=== PATIENT | female | born 1975 | race Caucasian/White ===

== ENCOUNTER 2018-03-29 08:56 | Emergency (ER) | payer OTHER ==
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
[2018-03-29] MEDS ORDERED: Ketorolac 30 MG/ML SDV IM ONE (10:05)
[2018-03-29 10:11] VITALS: BP 128/86
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
== END 2018-03-29 10:29 | disposition home or self-care (01) ==
LOC: DL.ED 08:56
DX: S39.012A Strain of muscle, fascia and tendon of lower back, initial encounter (principal); S46.912A Strain of unspecified muscle, fascia and tendon at shoulder and upper arm level, left arm, initial encounter; Z91.030 Bee allergy status; Z79.899 Other long term (current) drug therapy; E66.9 Obesity, unspecified; V89.2XXA Person injured in unspecified motor-vehicle accident, traffic, initial encounter
CPT/HCPCS: 72100; 73030; 96372; 99284; J1885

== ENCOUNTER 2018-08-10 06:02 | Emergency (ER) | payer OTHER ==
[2018-08-10 06:14] VITALS: BP 110/59
[2018-08-10] MEDS ORDERED: Sodium Chloride 0.9% 10 ML Syringe FLUSH PRN (06:16)
[2018-08-10] MEDS ORDERED: Sodium Chloride 0.9% 1,000 ML IV ONE (06:16)
[2018-08-10] MEDS ORDERED: HYDROmorphone 1 MG/ML Syringe IVPUSH ONE (06:21)
[2018-08-10 06:42] LABS: ANION GAP 14.7; CHLORIDE,CL 103 mmol/L (101-111); SODIUM,NA 138 mmol/L (135-145)
[2018-08-10] MEDS ORDERED: Lactated Ringers 1,000 ML IV ONE (06:53)
--- NOTE | 2018-08-10 08:53 | EDM.PDOC ---
ED HPI GENERAL MEDICAL PROBLEM - General Chief Complaint: Abdominal Pain Stated Complaint: SEVERE PAIN FRONT OF STOMACH [id number] Time Seen by Provider: 08/10/18 06:40 Source of Information: Reports: Patient History Limitations: Reports: No Limitations - History of Present Illness INITIAL COMMENTS - FREE TEXT/NARRATIVE: patient comes emergency room today with complaints of epigastric pain. Since last night she has had a waxing and waning sharp shooting stabbing epigastric pain that feels like a band around her epigastric region that radiates into her back. She has some underlying constant pain as well. Every time that she eats she gets nauseous and feels like she needs to vomit. She's had no fever no chills. No diarrhea. No weakness dizziness lightheadedness. Normal amount of all movements. No hematuria dysuria or urinary frequency. No flank pain. She had a similar episode of this about 1 week ago. She had a gastric bypass in December. She recently discontinued her omeprazole but appropriately slowly weaned off. Not been struggling with any heartburn. Upper Abdominal Pain Score (Numeric/FACES): 10 - Related Data Allergies Allergy/AdvReac Type Severity Reaction Status Date / Time bee venom protein (honey bee) Allergy Cannot Verified 08/10/18 06:15 Remember bupropion [From Wellbutrin] Allergy Anaphylactic Verified 08/10/18 06:15 Shock ibuprofen [From Motrin] Allergy Anaphylactic Verified 08/10/18 06:15 Shock oseltamivir phosphate Allergy Anaphylactic Verified 08/10/18 06:15 [From Tamiflu] Shock tetracycline Allergy Anaphylactic Verified 08/10/18 06:15 Shock tiotropium bromide Allergy Swollen Verified 08/10/18 06:15 [From Spiriva with Tongue HandiHaler] Home Meds: Home Meds Cetirizine HCl [Zyrtec] 10 mg PO DAILY 06/09/15 [History] Cholecalciferol (Vitamin D3) [Vitamin D] 2,000 unit PO DAILY 06/09/15 [History] Ethinyl Estradiol/Drospirenone [Ocella 3 MG-0.03 MG] 1 tab PO ASDIRECTED [History] Multivitamin [Multi-Day Vitamins] 1 each PO DAILY 03/29/18 [History] Potassium 99 mg PO DAILY 08/10/18 [History] Past Medical History HEENT History: Reports: None Cardiovascular History: Reports: None Respiratory History: Reports: Asthma Gastrointestinal History: Reports: None Genitourinary History: Reports: None 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 shoulder. Neurological History: Reports: None, Migraines Psychiatric History: Reports: None Endocrine/Metabolic History: Reports: Obesity/BMI 30+ Hematologic History: Reports: None Immunologic History: Reports: None Oncologic (Cancer) History: Reports: None Dermatologic History: Reports: None - Past Surgical History HEENT Surgical History: Reports: Tonsillectomy Cardiovascular Surgical History: Reports: None GI Surgical History: Reports: Other (See Below) Other GI Surgeries/Procedures: gastric surgery january of 2018 Female Surgical History: Reports: None Neurological Surgical History: Reports: None Musculoskeletal Surgical History: Reports: None Social & Family History - Family History Family Medical History: Noncontributory - Tobacco Use Smoking Status *Q: Never Smoker Second Hand Smoke Exposure: No - Caffeine Use Caffeine Use: Reports: None - Recreational Drug Use Recreational Drug Use: No - Living Situation & Occupation Living situation: Reports: with Family Occupation: Employed ED ROS GENERAL - Review of Systems Review Of Systems: ROS reveals no pertinent complaints other than HPI. ED EXAM, GI/ABD - Physical Exam Exam: See Below Exam Limited By: No Limitations General Appearance: Alert, WD/WN, No Apparent Distress Throat/Mouth: Normal Inspection, Normal Lips. No: Normal Oropharynx (oral mucosa is dry) Head: Atraumatic, Normocephalic Neck: Normal Inspection, Supple Respiratory/Chest: No Respiratory Distress, Lungs Clear, Normal Breath Sounds, No Accessory Muscle Use Cardiovascular: Normal Peripheral Pulses, Regular Rate, Rhythm GI/Abdominal Exam: Normal Bowel Sounds, Soft, Tender (tenderness to the epigastric region with guarding no rebound. Normal bowel sounds. Rest of the abdomen is soft nontender) Back Exam: Normal Inspection, Full Range of Motion. No: CVA Tenderness (L), CVA Tenderness (R) Extremities: Normal Inspection, Normal Range of Motion, Normal Capillary Refill Neurological: Alert, Oriented, CN II-XII Intact, No Motor/Sensory Deficits Psychiatric: Normal Affect, Normal Mood Skin Exam: Warm, Dry, Intact Course - Vital Signs Last Recorded V/S: Last Vital Signs Temp 36.5 C 08/10/18 06:08 Pulse 64 08/10/18 06:08 Resp 16 08/10/18 06:08 BP 110/59 L 08/10/18 06:08 Pulse Ox 100 08/10/18 06:08 - Orders/Labs/Meds Orders: Active Orders 24 hr Category Date Time Status Peripheral IV Care [RC] . DIRECTED Care 08/10/18 06:16 Active Gallbladder [Abdomen Ltd] [US] Urgent Exams 08/10/18 06:53 Taken Sodium Chloride 0.9% [Saline Flush] Med 08/10/18 06:16 Active 10 ml FLUSH ASDIRECTED PRN Peripheral IV Insertion Adult [OM.PC] Stat Oth 08/10/18 06:14 Ordered Medication Orders Sodium Chloride (Saline Flush) 10 ml FLUSH ASDIRECTED PRN PRN Reason: Keep Vein Open Last Admin: 08/10/18 06:21 Dose: 10 ml Labs: Laboratory Tests 08/10/18 08/10/18 08/10/18 Range/Units 06:13 06:13 06:13 WBC 9.8 (5.0-10.0) 10^3/uL RBC 4.43 (4.2-5.4) 10^6/uL Hgb 13.0 (12.0-16.0) g/dL Hct 39.8 (37.0-47.0) % MCV 89.8 (80-100) fL MCH 29.3 (27.0-34.0) pg MCHC 32.7 L (33.0-35.0) g/dL Plt Count 247 (150-450) 10^3/uL Neut % (Auto) 71.2 (42.2-75.2) % Lymph % (Auto) 17.7 L (20.5-50.1) % [place] % (Auto) 8.3 H (2-8) % Eos % (Auto) 2.3 (1.0-3.0) % Baso % (Auto) 0.5 (0.0-1.0) % Sodium 138 (135-145) mmol/L Potassium 3.7 (3.6-5.0) mmol/L Chloride 103 (101-111) mmol/L Carbon Dioxide 24.0 (21.0-31.0) mmol/L Anion Gap 14.7 BUN 9 (7-18) mg/dL Creatinine 0.6 (0.6-1.3) mg/dL Est Cr Clr Drug Dosing TNP Estimated GFR (MDRD) > 60 BUN/Creatinine Ratio 15.00 Glucose 87 (74-105) mg/dL Calcium 8.7 (8.4-10.2) mg/dl Total Bilirubin 0.4 (0.2-1.0) mg/dL AST 20 (10-42) IU/L ALT 20 (10-60) IU/L Alkaline Phosphatase 42 (42-121) IU/L C-Reactive Protein 1.0 (0.0-1.3) mg/dL Total Protein 6.7 (6.7-8.2) g/dl Albumin 3.8 (3.2-5.5) g/dl Globulin 2.9 Albumin/Globulin Ratio 1.31 Amylase 43 (28-100) U/L Lipase 26 (22-51) U/L Urine Color (YELLOW) Urine Appearance (CLEAR) Urine pH (5.0-9.0) Ur Specific [place] (1.005-1.030) Urine Protein (NEGATIVE) Urine Glucose (UA) (NEGATIVE) Urine Ketones (NEGATIVE) Urine Occult Blood (NEGATIVE) Urine Nitrite (NEGATIVE) Urine Bilirubin (NEGATIVE) Urine Urobilinogen (0.2-1.0) mg/dL Ur Leukocyte Esterase (NEGATIVE) Urine HCG, Qual 08/10/18 08/10/18 Range/Units 08:45 08:45 WBC (5.0-10.0) 10^3/uL RBC (4.2-5.4) 10^6/uL Hgb (12.0-16.0) g/dL Hct (37.0-47.0) % MCV (80-100) fL MCH (27.0-34.0) pg MCHC (33.0-35.0) g/dL Plt Count (150-450) 10^3/uL Neut % (Auto) (42.2-75.2) % Lymph % (Auto) (20.5-50.1) % [place] % (Auto) (2-8) % Eos % (Auto) (1.0-3.0) % Baso % (Auto) (0.0-1.0) % Sodium (135-145) mmol/L Potassium (3.6-5.0) mmol/L Chloride (101-111) mmol/L Carbon Dioxide (21.0-31.0) mmol/L Anion Gap BUN (7-18) mg/dL Creatinine (0.6-1.3) mg/dL Est Cr Clr Drug Dosing Estimated GFR (MDRD) BUN/Creatinine Ratio Glucose (74-105) mg/dL Calcium (8.4-10.2) mg/dl Total Bilirubin (0.2-1.0) mg/dL AST (10-42) IU/L ALT (10-60) IU/L Alkaline Phosphatase (42-121) IU/L C-Reactive Protein (0.0-1.3) mg/dL Total Protein (6.7-8.2) g/dl Albumin (3.2-5.5) g/dl Globulin Albumin/Globulin Ratio Amylase (28-100) U/L Lipase (22-51) U/L Urine Color Dark yellow (YELLOW) Urine Appearance Clear (CLEAR) Urine pH 6.0 (5.0-9.0) Ur Specific [place] 1.020 (1.005-1.030) Urine Protein Negative (NEGATIVE) Urine Glucose (UA) Negative (NEGATIVE) Urine Ketones Negative (NEGATIVE) Urine Occult Blood Negative (NEGATIVE) Urine Nitrite Negative (NEGATIVE) Urine Bilirubin Negative (NEGATIVE) Urine Urobilinogen 0.2 (0.2-1.0) mg/dL Ur Leukocyte Esterase Negative (NEGATIVE) Urine HCG, Qual Negative Meds: Medications Generic Name Dose Route Start Last Admin Trade Name Freq PRN Reason Stop Dose Admin Sodium Chloride 10 ml 08/10/18 06:16 08/10/18 06:21 Saline Flush FLUSH 10 ml ASDIRECTED PRN Administration Keep Vein Open Discontinued Medications Generic Name Dose Route Start Last Admin Trade Name Freq PRN Reason Stop Dose Admin Hydromorphone HCl 1 mg 08/10/18 06:21 08/10/18 06:24 Dilaudid IVPUSH 08/10/18 06:22 1 mg ONETIME ONE Administration Sodium Chloride 1,000 mls @ 999 mls/hr 08/10/18 06:16 08/10/18 06:19 Normal Saline IV 08/10/18 07:16 999 mls/hr .BOLUS ONE Administration Lactated Ringer's 1,000 mls @ 1,000 mls/hr 08/10/18 06:53 Ringers, Lactated IV 08/10/18 07:52 .BOLUS ONE - Re-Assessments/Exams Free Text/Narrative Re-Assessment/Exam: 08/10/18 08:51 patient initially was given a liter of normal saline and Dilaudid by my partner. Laboratory evaluation is rather unremarkable to include a normal CBC and CMP. Her pain was much improved following the Dilaudid. Departure - Departure Time of Disposition: 09:32 Disposition: Home, Self-Care 01 Clinical Impression: Epigastric abdominal pain - Discharge Information Instructions: Opioid Pain Medicine Information, [id number], Pain Medicine Instructions, [id number], Abdominal Pain, Adult, [id number] Forms: ED Department Discharge Additional Instructions: If pain return try OTC Maalox or Mylanta for acute pain, if does improve the pain may be GERD related. If the acute pain does resolve with the maalox or Mylanta talk with Dr. Serna about starting Omeprazole again. Low fat diet. Slowly advance diet as tolerated no dairy products until symptoms have resolved for 24 hrs. Tylenol as needed for pain. If pain not controlled with above. Hamel, 1 tablet every 6 hrs with food as needed for pain. RX given to the patient #9. Return to the ED if new or worsening symptoms Follow up with Dr. Serna or Dr Reynold Iyer by phone in the next few days for recheck and possible visit with concerns of the gallbladder polyps. - My Orders Last 24 Hours: My Active Orders 08/10/18 06:53 Gallbladder [Abdomen Ltd] [US] Urgent - Assessment/Plan Last 24 Hours: My Active Orders 08/10/18 06:53 Gallbladder [Abdomen Ltd] [US] Urgent Assessment:: Epigastric pain, GERD vs gallbladder polyp concern. No cholelithiasis or cystitis. Plan: If pain return try OTC Maalox or Mylanta for acute pain, if does improve the pain may be GERD related. If the acute pain does resolve with the maalox or Mylanta talk with Dr. Serna about starting Omeprazole again. Low fat diet. Slowly advance diet as tolerated no dairy products until symptoms have resolved for 24 hrs. Tylenol as needed for pain. If pain not controlled with above. Hamel, 1 tablet every 6 hrs with food as needed for pain. RX given to the patient #9. Return to the ED if new or worsening symptoms Follow up with Dr. Serna or Dr Reynold Iyer by phone in the next few days for recheck and possible visit with concerns of the gallbladder polyps. Please CC a copy of this note and ultrasound to Dr. Serna or Dr. Kanwal Iyer at [facility] in [place].
== END 2018-08-10 09:48 | disposition home or self-care (01) ==
LOC: DL.ED 06:02
DX: R10.13 Epigastric pain (principal); Z79.899 Other long term (current) drug therapy; Z88.8 Allergy status to other drugs, medicaments and biological substances; Z91.030 Bee allergy status; Z88.6 Allergy status to analgesic agent
CPT/HCPCS: 36415; 76705; 80053; 81003; 81025; 82150; 83690; 85025; 86140; 96361; 96374; 99284; J1170; J7030

== ENCOUNTER 2021-08-22 06:14 | Emergency (ER) | payer MEDICAID, OTHER ==
[2021-08-22 06:30] VITALS: BP 164/84; PULSE 65
[2021-08-22] MEDS ORDERED: Sodium Chloride 0.9% 1,000 ML IV ONE (07:20)
[2021-08-22] MEDS ORDERED: Ondansetron 4 MG/2 ML SDV IVPUSH ONE (07:26)
[2021-08-22] MEDS ORDERED: fentaNYL 100 MCG/2 ML SDV IVPUSH ONE (07:26)
[2021-08-22 07:35] LABS: ANION GAP 12.1 mEq/L (7-13)
[2021-08-22] MEDS ORDERED: Tamsulosin 0.4 MG Cap.ER PO ONE (08:06)
[2021-08-22] MEDS ORDERED: Acetaminophen/oxyCODONE 325-5 MG Tab PO ONE (09:24)
== END 2021-08-22 10:12 | disposition home or self-care (01) ==
LOC: DL.ED 06:14
DX: N13.2 Hydronephrosis with renal and ureteral calculous obstruction (principal); F17.210 Nicotine dependence, cigarettes, uncomplicated; E66.9 Obesity, unspecified; Z68.35 Body mass index [BMI] 35.0-35.9, adult; Z91.030 Bee allergy status; Z88.8 Allergy status to other drugs, medicaments and biological substances; Z79.899 Other long term (current) drug therapy
CPT/HCPCS: 36415; 74176; 80053; 81001; 83605; 84703; 85025; 96361; 96374; 96375; 99284; A9270; J2405; J3010; J7030

== ENCOUNTER 2021-09-11 00:38 | Emergency (ER) | payer MEDICAID ==
[2021-09-11 02:11] VITALS: BP 148/100; PULSE 62
[2021-09-11] MEDS ORDERED: Ondansetron 4 MG/2 ML SDV IVPUSH ONE (02:15)
[2021-09-11] MEDS ORDERED: Sodium Chloride 0.9% 1,000 ML IV ONE (02:15)
[2021-09-11] MEDS ORDERED: HYDROmorphone 1 MG/ML Syringe IVPUSH ONE (02:15)
[2021-09-11] MEDS ORDERED: Tamsulosin 0.4 MG Cap.ER PO ONE (02:49)
[2021-09-11 02:58] LABS: AMPHETAMINES,URINE NEGATIVE (NEGATIVE); BARBITURATES,URINE NEGATIVE (NEGATIVE); BENZODIAZEPINE,URINE NEGATIVE (NEGATIVE); MDMA (ECSTASY), URINE NEGATIVE (NEGATIVE); METHADONE,URINE NEGATIVE (NEGATIVE); METHAMPHETAMINES,URINE NEGATIVE (NEGATIVE); OPIATES,URINE NEGATIVE (NEGATIVE); OXYCODONE,URINE NEGATIVE (NEGATIVE); PHENCYCLIDINE,URINE NEGATIVE (NEGATIVE); TCA,URINE NEGATIVE (NEGATIVE)
[2021-09-11 03:00] LABS: ANION GAP 13.3 mEq/L (7-13)
== END 2021-09-11 03:41 | disposition home or self-care (01) ==
LOC: DL.ED 00:38
DX: N23 Unspecified renal colic (principal); E66.9 Obesity, unspecified; Z68.35 Body mass index [BMI] 35.0-35.9, adult; Z91.030 Bee allergy status; Z88.6 Allergy status to analgesic agent; Z88.1 Allergy status to other antibiotic agents; Z88.8 Allergy status to other drugs, medicaments and biological substances; Z79.899 Other long term (current) drug therapy
CPT/HCPCS: 36415; 80053; 80305; 81001; 85025; 96361; 96374; 96375; 99283; 99284; A9270; J1170; J2405; J7030

== ENCOUNTER 2021-09-11 21:33 | Emergency (ER) | payer MEDICAID ==
[2021-09-11 22:05] VITALS: BP 179/96; PULSE 79
[2021-09-12] MEDS ORDERED: Sodium Chloride 0.9% 1,000 ML IV ONE (00:37)
[2021-09-12 01:10] LABS: AMPHETAMINES,URINE NEGATIVE (NEGATIVE); BARBITURATES,URINE NEGATIVE (NEGATIVE); BENZODIAZEPINE,URINE NEGATIVE (NEGATIVE); MDMA (ECSTASY), URINE NEGATIVE (NEGATIVE); METHADONE,URINE NEGATIVE (NEGATIVE); METHAMPHETAMINES,URINE NEGATIVE (NEGATIVE); OPIATES,URINE POSITIVE (NEGATIVE); OXYCODONE,URINE NEGATIVE (NEGATIVE); PHENCYCLIDINE,URINE NEGATIVE (NEGATIVE); TCA,URINE NEGATIVE (NEGATIVE)
[2021-09-12] MEDS ORDERED: Ondansetron 4 MG/2 ML SDV IVPUSH ONE (01:13)
[2021-09-12] MEDS ORDERED: HYDROmorphone 1 MG/ML Syringe IVPUSH ONE ×3 (01:13→08:39)
[2021-09-12 01:47] LABS: ANION GAP 13.1 mEq/L (7-13)
[2021-09-12] MEDS ORDERED: Tamsulosin 0.4 MG Cap.ER PO ONE (01:56)
== END 2021-09-12 09:20 ==
LOC: DL.ED 21:33
DX: N13.2 Hydronephrosis with renal and ureteral calculous obstruction (principal); E66.9 Obesity, unspecified; F17.210 Nicotine dependence, cigarettes, uncomplicated; Z68.35 Body mass index [BMI] 35.0-35.9, adult; Z20.822 Contact with and (suspected) exposure to COVID-19; Z91.030 Bee allergy status; Z88.8 Allergy status to other drugs, medicaments and biological substances; Z88.2 Allergy status to sulfonamides
CPT/HCPCS: 36415; 74176; 80053; 80305; 81001; 85025; 87635; 96361; 96374; 96375; 96376; 99284; 99285; A9270; J1170; J2405; J7030; U0002

== ENCOUNTER 2023-02-28 19:41 | Emergency (ER) | payer MEDICAID ==
[2023-02-28] MEDS ORDERED: Acetaminophen/oxyCODONE 325-5 MG Tab PO ONE (20:26)
[2023-02-28] MEDS ORDERED: Diphtheria,Pertussis(Acell),Tetanus Vaccine 0.5 ML Syringe IM ONE (20:26)
[2023-02-28 20:56] VITALS: BP 175/106; PULSE 68
== END 2023-02-28 20:55 | disposition home or self-care (01) ==
LOC: DL.ED 19:41
DX: S01.81XA Laceration without foreign body of other part of head, initial encounter (principal); T74.11XA Adult physical abuse, confirmed, initial encounter; J45.909 Unspecified asthma, uncomplicated; E66.9 Obesity, unspecified; Z79.899 Other long term (current) drug therapy; Z88.8 Allergy status to other drugs, medicaments and biological substances; Z91.030 Bee allergy status; Z88.6 Allergy status to analgesic agent; Z23 Encounter for immunization; Z68.39 Body mass index [BMI] 39.0-39.9, adult; Y04.8XXA Assault by other bodily force, initial encounter
CPT/HCPCS: 12011; 90471; 90715; 99282; A9270

== ENCOUNTER 2023-06-07 21:21 | Emergency (ER) | payer MEDICAID ==
[2023-06-07 21:43] VITALS: BP 154/90; PULSE 80
[2023-06-07] MEDS: Sodium Chloride 0.9% 10 ML Syringe FLUSH PRN (22:24)
[2023-06-07] MEDS: Diazepam 5 MG Tab PO ONE (23:00)
[2023-06-07] MEDS: methylPREDNISolone Sodium Succinate 125 MG/2 ML SDV IVPUSH ONE (23:00)
== END 2023-06-07 23:10 | disposition home or self-care (01) ==
LOC: DL.ED 21:21
DX: M54.14 Radiculopathy, thoracic region (principal); F17.210 Nicotine dependence, cigarettes, uncomplicated; E66.9 Obesity, unspecified; Z91.030 Bee allergy status; Z88.8 Allergy status to other drugs, medicaments and biological substances; Z88.6 Allergy status to analgesic agent; Z88.7 Allergy status to serum and vaccine; Z88.1 Allergy status to other antibiotic agents; Z79.899 Other long term (current) drug therapy; Z68.39 Body mass index [BMI] 39.0-39.9, adult
CPT/HCPCS: 96374; 96375; 99283; A9270; J2930; J3360; J3490

== ENCOUNTER 2024-05-02 18:33 | Emergency (ER) | payer MEDICAID ==
[2024-05-02] MEDS ORDERED: Lidocaine 2% Viscous Solution 15 ML UD PO ONE (18:35)
[2024-05-02 19:05] LABS: BASOPHILS PERCENT AUTO 0.6 % (0.0-1.0); EOSINOPHILS PERCENT AUTO 4.7 % (1.0-3.0); HEMOGLOBIN 12.8 g/dL (12.0-16.0); LYMPHOCYTES PERCENT AUTO 20.1 % (20.5-50.1); MEAN CORPUSCULAR HEMOGLOBIN 28.3 pg (27.0-34.0); MEAN CORPUSCULAR HGB CONC 32.8 g/dL (33.0-35.0); MEAN CORPUSCULAR VOLUME 86.1 fL (80-100); MONOCYTES PERCENT AUTO 9.1 % (2-8); NEUTROPHILS PERCENT AUTO 65.5 % (42.2-75.2); PLATELET COUNT,PLT 289 10^3/uL (150-450); RED BLOOD CELL COUNT 4.53 10^6/uL (4.2-5.4); WHITE BLOOD CELL COUNT,WBC 9.8 10^3/uL (5.0-10.0)
[2024-05-02] MEDS: Lidocaine 2% 20 ML MDV ONE ×2 (19:15)
[2024-05-02 19:27] LABS: A/G RATIO 1.1; ALANINE AMINOTRANSFERASE,ALT 22 U/L (14-59); ALBUMIN 3.9 g/dL (3.4-5.0); ALKALINE PHOSPHATASE 80 U/L (46-116); ANION GAP 14.6 mEq/L (7-13); ASPARTATE AMNIOTRANSFERASE,AST 12 U/L (15-37); BILIRUBIN TOTAL 0.3 mg/dL (0.2-1.0); BLOOD UREA NITROGEN,BUN 14 mg/dL (7-18); BUN/CREATININE RATIO 18.9 (No establ ref range); CALCIUM 8.5 mg/dL (8.5-10.1); CARBON DIOXIDE,CO2 26 mmol/L (21-32); CHLORIDE,CL 104 mmol/L (98-107); CREATININE 0.74 mg/dL (0.55-1.02); EST CRCL DRUG DOSING (CG) 87.03 mL/min; GLUCOSE RANDOM 105 mg/dL (70-99); MAGNESIUM 2.1 mg/dL (1.8-2.4); POTASSIUM,K 3.6 mmol/L (3.5-5.1); PROTEIN TOTAL,TP 7.6 g/dL (6.4-8.2); SODIUM,NA 141 mmol/L (136-145)
[2024-05-02 19:28] LABS: C-REACTIVE PROTEIN < 0.50 ng/dL (<=0.50); ESTIMATED GFR 100 mL/min (>=60)
[2024-05-02 19:35] VITALS: BP 137/102; PULSE 69
== END 2024-05-02 19:29 | disposition home or self-care (01) ==
LOC: DL.ED 18:33
DX: G43.909 Migraine, unspecified, not intractable, without status migrainosus (principal); J45.909 Unspecified asthma, uncomplicated; E66.9 Obesity, unspecified; Z91.030 Bee allergy status; Z88.8 Allergy status to other drugs, medicaments and biological substances; Z79.899 Other long term (current) drug therapy; Z68.38 Body mass index [BMI] 38.0-38.9, adult
CPT/HCPCS: 64400; 70450; 80053; 83735; 85025; 86140; 87428; 99284; J2003

== ENCOUNTER 2024-05-14 15:11 | Emergency (ER) | payer BC ==
[2024-05-14] MEDS ORDERED: Sodium Chloride 0.9% 10 ML Syringe FLUSH PRN (15:37)
[2024-05-14 16:27] LABS: APPEARANCE,URINE CLEAR (CLEAR); BILIRUBIN,URINE NEGATIVE (NEGATIVE); COLOR,URINE YELLOW (YELLOW); GLUCOSE,URINE NEGATIVE (NEGATIVE); KETONES,URINE NEGATIVE (NEGATIVE); LEUKOCYTE ESTERASE,URINE NEGATIVE (NEGATIVE); NITRITE,URINE NEGATIVE (NEGATIVE); OCCULT BLOOD,URINE NEGATIVE (NEGATIVE); PROTEIN,URINE NEGATIVE (NEGATIVE); UROBILINOGEN,URINE 0.2 mg/dL (0.2-1.0)
[2024-05-14 16:28] LABS: AMPHETAMINES,URINE NEGATIVE (NEGATIVE); BARBITURATES,URINE NEGATIVE (NEGATIVE); BENZODIAZEPINE,URINE NEGATIVE (NEGATIVE); MDMA (ECSTASY), URINE NEGATIVE (NEGATIVE); METHADONE,URINE NEGATIVE (NEGATIVE); METHAMPHETAMINES,URINE NEGATIVE (NEGATIVE); OPIATES,URINE NEGATIVE (NEGATIVE); OXYCODONE,URINE NEGATIVE (NEGATIVE); PHENCYCLIDINE,URINE NEGATIVE (NEGATIVE); TCA,URINE NEGATIVE (NEGATIVE)
[2024-05-14 16:33] LABS: BASOPHILS PERCENT AUTO 0.5 % (0.0-1.0); EOSINOPHILS PERCENT AUTO 5.6 % (1.0-3.0); HEMATOCRIT 37.6 % (37.0-47.0); HEMOGLOBIN 12.1 g/dL (12.0-16.0); LYMPHOCYTES PERCENT AUTO 20.7 % (20.5-50.1); MEAN CORPUSCULAR HGB CONC 32.2 g/dL (33.0-35.0); MONOCYTES PERCENT AUTO 9.6 % (2-8); NEUTROPHILS PERCENT AUTO 63.6 % (42.2-75.2); PLATELET COUNT,PLT 266 10^3/uL (150-450); RED BLOOD CELL COUNT 4.32 10^6/uL (4.2-5.4); WHITE BLOOD CELL COUNT,WBC 7.7 10^3/uL (5.0-10.0)
[2024-05-14 16:54] LABS: INR 0.9 (0.9-1.2); PROTHROMBIN TIME 9.5 SEC (9.0-12.0); PTT,PARTIAL THROMBOPLSTIN TIME 24.1 SEC (22.0-34.0)
[2024-05-14 16:56] LABS: LACTIC ACID 0.8 mmol/L (0.4-2.0)
[2024-05-14 16:57] LABS: A/G RATIO 1.1; ALANINE AMINOTRANSFERASE,ALT 25 U/L (14-59); ALBUMIN 3.8 g/dL (3.4-5.0); ALKALINE PHOSPHATASE 82 U/L (46-116); ANION GAP 12.5 mEq/L (7-13); ASPARTATE AMNIOTRANSFERASE,AST 19 U/L (15-37); BILIRUBIN TOTAL 0.3 mg/dL (0.2-1.0); BLOOD UREA NITROGEN,BUN 13 mg/dL (7-18); BUN/CREATININE RATIO 15.3 (No establ ref range); CALCIUM 8.8 mg/dL (8.5-10.1); CARBON DIOXIDE,CO2 29 mmol/L (21-32); CHLORIDE,CL 104 mmol/L (98-107); CREATININE 0.85 mg/dL (0.55-1.02); GLUCOSE RANDOM 86 mg/dL (70-99); MAGNESIUM 2.1 mg/dL (1.8-2.4); POTASSIUM,K 4.5 mmol/L (3.5-5.1); PROTEIN TOTAL,TP 7.4 g/dL (6.4-8.2); SODIUM,NA 141 mmol/L (136-145); TSH ULTRASENSITIVE 2.45 uIU/mL (0.36-3.74)
[2024-05-14 16:58] LABS: C-REACTIVE PROTEIN < 0.50 ng/dL (<=0.50); ESTIMATED GFR 84 mL/min (>=60)
[2024-05-14] MEDS: Ondansetron 4 MG/2 ML SDV IVPUSH ONE (17:49)
[2024-05-14] MEDS: HYDROmorphone 1 MG/ML Syringe IVPUSH ONE (17:50)
[2024-05-14] MEDS: Sodium Chloride 0.9% 1,000 ML IV ONE (17:58)
[2024-05-14 18:07] VITALS: BP 138/69; PULSE 68
== END 2024-05-14 18:21 | disposition home or self-care (01) ==
LOC: DL.ED 15:11
DX: G43.909 Migraine, unspecified, not intractable, without status migrainosus (principal); R20.2 Paresthesia of skin; J45.909 Unspecified asthma, uncomplicated; E66.9 Obesity, unspecified; Z79.899 Other long term (current) drug therapy; Z88.6 Allergy status to analgesic agent; Z88.8 Allergy status to other drugs, medicaments and biological substances; Z88.2 Allergy status to sulfonamides; Z91.030 Bee allergy status; Z86.73 Personal history of transient ischemic attack (TIA), and cerebral infarction without residual deficits; Z68.38 Body mass index [BMI] 38.0-38.9, adult
CPT/HCPCS: 36415; 70450; 80053; 80305; 81003; 82140; 82607; 82947; 83605; 83735; 84443; 85025; 85610; 85730; 86140; 87040; 96374; 96375; 99284; J1171; J2405; J7030

== ENCOUNTER 2024-09-02 10:19 | Emergency (ER) | payer BC, MEDICAID ==
[2024-09-02 10:39] VITALS: BP 130/86; PULSE 82
[2024-09-02] MEDS: Dexamethasone 4 MG/ML SDV IM ONE (10:42)
== END 2024-09-02 10:46 | disposition home or self-care (01) ==
LOC: DL.ED 10:19
DX: R20.8 Other disturbances of skin sensation (principal); E66.9 Obesity, unspecified; Z91.030 Bee allergy status; Z88.8 Allergy status to other drugs, medicaments and biological substances; Z79.899 Other long term (current) drug therapy
CPT/HCPCS: 96372; 99283; J1100